=== PATIENT | male | born 1970 ===

== ENCOUNTER 2022-03-24 12:39 | Emergency (ER) | payer OTHER ==
[~2022-03-24] VITALS: Ht 182.9 cm; Wt 72.6 kg
[~2022-03-24 12:39] MED LIST: INTESTINEX680 MG PO; ZANTAC150 MG PO
[2022-03-24] MEDS ORDERED: CLONAZEPAM0.5 MG PO (12:58)
[2022-03-24] MEDS ORDERED: DIVALPROEX SOD500 MG PO (12:58)
[2022-03-24] MEDS ORDERED: DIVALPROEX SOD250 MG PO (12:58)
== END 2022-03-24 17:14 | disposition home or self-care (01) ==
LOC: ER 12:39
DX: R05.8 Other specified cough (principal); R53.81 Other malaise; Z20.822 Contact with and (suspected) exposure to COVID-19; Z88.0 Allergy status to penicillin